=== PATIENT | female | born 1955 | race Caucasian/White ===

== ENCOUNTER 2016-03-12 11:52 | Observation (INO) | payer MEDICARE ==
--- NOTE | 2016-03-12 13:05 | ERNOTE ---
Trauma/Assault HPI - Narrative Date of Service: 03/12/16 - General Stated Complaint: KNEE PAIN Time Seen by Provider: 03/12/16 12:48 Source: patient Exam Limitations: no limitations - Immun/Allergies/Home Medications Immunizations: IMMUNIZATION HX Immunizations Up to Date No: unsure History of Influenza Vaccine No Hx Pneumococcal Vaccination No Allergies/Adverse Reactions: Allergies metoclopramide HCl [From Reglan] Adverse Reaction (Intermediate, Verified 14:12) Dyskinesia Home Medications: HOME MEDICATIONS Acetaminophen [Tylenol] 650 mg PO QID PRN #0 tablet 03/13/16 [Last Taken Unknown ] Clopidogrel Bisulfate [Plavix] 75 mg PO DAILY #30 tablet 03/13/16 [Last Taken Unknown] Enalapril Maleate [Vasotec] 20 mg PO BID #60 tablet 03/13/16 [Last Taken Unknown ] LORazepam [Ativan] 0.5 tab PO TID #45 tablet 03/13/16 [Last Taken Unknown] Levothyroxine Sodium [Synthroid] 150 mcg PO DAILY #30 tablet 03/13/16 [Last Taken Unknown] Ranitidine HCl [Zantac] 300 mg PO HS #30 tab 03/13/16 [Last Taken Unknown] Simvastatin [Zocor] 40 mg PO HS #60 tablet 03/13/16 [Last Taken Unknown] glipiZIDE [Glucotrol] 5 mg PO BIDAC #60 tablet 03/13/16 [Last Taken Unknown] metFORMIN HCL [Glucophage] 500 mg PO BIDWM #60 tablet 03/13/16 [Last Taken Unknown] - History of Present Illness Date (Duration): 03/12/16 Narrative: Pt. comes in with c/o falling twice in just as many weeks and stating that she has hit different parts of her body and had abrasions as well as hit her head three weeks ago in a fall. Pt. denies any dizziness but states that she has had an odd feeling recently and has pain and weakness and fatigue more recently. Review of Systems - Review of Systems Constitutional: Present: weakness, fatigue, malaise. Absent: recent illness, fever, chills EYE: Present: no symptoms reported ENT: Present: no symptoms reported Respiratory: Present: no symptoms reported Cardiology: Present: no symptoms reported Gastrointestinal/Abdominal: Present: no symptoms reported Genitourinary: Present: other - occasional incontinence Musculoskeletal: Present: back pain, joint pain - R knee Skin: Present: no symptoms reported Neurological: Present: weakness, pre-existing deficit All Other Systems: All systems neg except as marked - Patient's Past Medical History Patient History - Medical: Arthritis, Cataracts, Diabetes Type 2, Depression, GERD, Hypothyroidism, Migraines, Seizures, UTI'S, Other Patient History - Cardiac/Respiratory: CHF, CVA/Stroke, Hypertension, Hyperlipidemia, Other Patient History - Cancer: Colon Patient History - Surgical Procedures: Cataracts, Hysterectomy, Total Knee Replacement, Other - Family History Father Family History - Medical: Family History - Cardiac/Respiratory: Myocardial Infarction Mother Family History - Medical: , Alzheimer's Disease - Social History Living Situations: spouse Smoking Status: Never smoker Alcohol Use: occasionally Drug Use: none Physical Exam - Physical Exam General Appearance: Present: wd/wn, no apparent distress, lethargic Eye Exam: Normal inspection: bilateral, PERRL: bilateral, EOMI: bilateral Ears, Nose, Throat: Present: normal ENT inspection, hearing grossly normal Neck: Present: normal inspection, nontender. 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 Absent: normal mood/affect, no motor/sensory deficits Skin Exam: Present: normal color, warm/dry ED Progress - Date and Time Seen: Date and Time: Am concerned that pt's medication and multiple medical problems may be causing pt. to fall more frequently. 03/12/16 16:[address] Carine Guerrero and as pt. has a great deal of non specific problems and is hyperglycemic with multiple falls he recommends having pt. admitted for AMS and weakness. 03/12/16 17:00 03/13/16 13:55 - Vital Signs Patient's Vital Signs:: I have reviewed the patient's vital signs. Vital Signs: Vital Signs 03/12/16 12:23 Temperature 36.3 C L Pulse Rate 74 Respiratory 18 Rate Blood Pressure 180/99 O2 Sat by Pulse 95 Oximetry - Progress/Reassessment Chief Complaint: Fall Progress:: Unchanged Departure Clinical Impression: History of CVA (cerebrovascular accident) Altered mental status Qualifiers: Altered mental status type: unspecified Qualified Code(s): R41.82 - Altered mental status, unspecified - Departure Disposition: [facility] Condition: Fair
[2016-03-12 13:19] LABS: Hematocrit 42.3 % (37.0-47.0); Hemoglobin 14.5 gm/dL (12.5-16.0); Mean Cell Volume 89.6 fl (78-100); Mean Corpuscular Hemoglobin 30.7 pg (27-31); Mean Corpuscular Hgb Conc 34.3 g/dl (32-36); Neutrophil # 9.1 K/mm3 (1.3-6.0); Neutrophil % 71.2 % (42-75.0); Platelet Count 272 K/mm3 (150-450); Red Blood Count 4.72 M/mm3 (4.2-5.4); Red Cell Distribution Width 13.5 % (11.5-14.0); White Blood Count 12.9 K/mm3 (4.0-10.5)
[2016-03-12 13:50] LABS: Albumin * 2.9 gm/dl (3.4-5.0); Anion Gap 10.7 mmol/L (6.8-13.8); BUN/Creatinine Ratio 14.9 (9.0-21.6); Bilirubin, Total 0.8 mg/dL (0.0-1.1); Ca. Corrected For Albumin 9.9 mg/dL (8.4-10.2); Calcium * 9.3 mg/dL (7.9-10.9); Carbon Dioxide 29.7 mmol/L (24-32.6); Potassium 3.4 mmol/L (3.4-4.6); Total Protein 7.1 gm/dL (6.2-8.2)
[2016-03-12 15:19] LABS: Urine Bilirubin 1 mg/dl (NEGATIVE); Urine Blood 50 /ul (NEGATIVE); Urine Ketone 5 mg/dL (NEGATIVE); Urine Nitrite Negative (NEGATIVE); Urine Protein >=300 mg/dL (NEGATIVE); Urine Specific Gravity >=1.030 SP.GR. (1.005-1.010); Urine Urobilinogen Normal (NORMAL)
[2016-03-12 15:41] LABS: Urine Appearance Slightly Cloudy; Urine Bacteria TRACE; Urine Color Yellow; Urine WBC 0-5 /hpf (0-5)
[2016-03-12 17:39] LABS: Cocaine Ur Negative (NEGATIVE); Urine Barbiturate Negative (NEGATIVE); Urine Benzodiazepines Negative (NEGATIVE); Urine Opiates Negative (NEGATIVE); Urine PCP Negative (NEGATIVE); Urine THC Negative (NEGATIVE)
[2016-03-12] MEDS ORDERED: NAPROXEN 500 MG TABLET PO PRN (18:43)
[2016-03-12] MEDS ORDERED: ACETAMINOPHEN 325 MG TABLET PO PRN (18:48)
--- NOTE | 2016-03-12 18:58 | HP ---
Chief Complaint - Chief Complaint Date of Service: 03/12/16 Time of Service: 06:00 Chief Complaint: Falls History of Present Illness: For 6 weeks, falling more. No actual injury from the falls. Today, is also confused and bewildered. She has had similar episodes in the past. Hasn't been seen in our office for over a year. Also, has diabetes and presented to the [facility] ER today with nonketotic hyperglycemia. Cause for falls is not clear at present. - Patient's Past Medical History Patient History - Medical: Arthritis, Cataracts, Diabetes Type 2, Depression, GERD, Hypothyroidism, Migraines, Seizures, UTI'S Patient History - Cardiac/Respiratory: CHF, CVA/Stroke, Hypertension, Hyperlipidemia, Other Patient History - Cancer: Colon Patient History - Surgical Procedures: Cataracts, Hysterectomy, Total Knee Replacement, Other - Family History Father Family History - Medical: Family History - Cardiac/Respiratory: Myocardial Infarction Mother Family History - Medical: , Alzheimer's Disease - Social History Living Situations: spouse Smoking Status: Never smoker Alcohol Use: occasionally Drug Use: none Review Of Systems (GEN) - Review of Systems Generalized/Overall Review: Present: Weakness, Malaise EENTM: Present: No Symptoms Reported Respiratory: Present: No Symptoms Reported Cardiac: Present: No Symptoms Reported Abdominal: Present: No Symptoms Reported Genitourinary: Present: No Symptoms Reported Musculoskeletal: Present: No Symptoms Reported Neurological: Present: Other - HPI Skin: Present: No Symptoms Reported Endocrine: Present: No Symptoms Reported Misc: All systems neg except as marked Allergies/Adverse Reactions: Allergies Allergy/AdvReac Type Severity Reaction Status Date / Time metoclopramide HCl AdvReac Intermediate Dyskinesia Verified 02/13/16 14:12 [From Reglan] Home Medications: HOME MEDICATIONS Clopidogrel Bisulfate [Plavix] 75 mg PO DAILY 02/13/16 [Last Taken Unknown] Enalapril Maleate [Vasotec] 20 mg PO BID 02/13/16 [Last Taken Unknown] Gabapentin 300 mg PO TID 02/13/16 [Last Taken Unknown] LORazepam [Ativan] 0.5 mg PO TID 02/13/16 [Last Taken Unknown] Naproxen [Naprosyn] 500 mg PO BID PRN #60 tab 02/13/16 [Last Taken Unknown] Omeprazole 20 mg PO BID 02/13/16 [Last Taken Unknown] Simvastatin [Zocor] 40 mg PO HS 02/13/16 [Last Taken Unknown] Venlafaxine HCl [Effexor Xr] 150 mg PO DAILY 02/13/16 [Last Taken Unknown] Exam - Exam Vital Signs: Vital Signs - Last Taken Selected Entries 03/12/16 12:23 Temperature 36.3 C L Temperature Tympanic Source Pulse Rate 74 Pulse Rhythm Regular Respiratory 18 Rate Respiratory Normal Depth Respiratory Normal Effort Respiratory Normal Pattern Blood Pressure 180/99 Blood Pressure Sitting Position O2 Sat by Pulse 95 Oximetry Constitutional: Present: Cooperative, Well developed, No distress, Obese, Looks Older than stated age ENT Exam: Present: normal ENT inspection, pharynx normal, hard of hearing Eye Exam: bilateral eye: normal inspection, PERRL, EOMI Neck: Present: normal inspection Back Exam: Present: normal inspection, no CVA tenderness, no vertebral tenderness Respiratory: Present: normal breath sounds, no respiratory distress Cardiovascular/Chest: Present: regular rate, rhythm, no murmur Abdomen: Present: Normal bowel sounds, soft, nontender, nondistended, no rebound tenderness, no hepatospenomegaly, no masses, obese Extremity: Present: pedal edema Skin Exam: Present: normal color, warm/dry, no cyanosis Neurologic: Present: other - bewildered Appearance: Present: appropriate appearance, neat Eye contact: Present: cooperative Diagnostic Studies: Laboratory Results WBC 12.9 K/mm3 (4.0-10.5) H 03/12/16 13:15 RBC 4.72 M/mm3 (4.2-5.4) 03/12/16 13:15 Hgb 14.5 gm/dL (12.5-16.0) 03/12/16 13:15 Hct 42.3 % (37.0-47.0) 03/12/16 13:15 MCV 89.6 fl (78-100) 03/12/16 13:15 MCH 30.7 pg (27-31) 03/12/16 13:15 MCHC 34.3 g/dl (32-36) 03/12/16 13:15 RDW 13.5 % (11.5-14.0) 03/12/16 13:15 Plt Count 272 K/mm3 (150-450) 03/12/16 13:15 MPV 9.0 fl (6.0-9.5) 03/12/16 13:15 Immature Gran % (Auto) 0.60 % (0.001-0.429) H 03/12/16 13:15 Immature Gran # (Auto) 0.08 K/mm3 (0.000-0.0310) H 03/12/16 13:15 Neutrophils % 71.2 % (42-75.0) 03/12/16 13:15 Lymphocytes % 19.5 % (20-51) L 03/12/16 13:15 Monocytes % 4.1 % (0.0-9) 03/12/16 13:15 Eosinophils % 4.1 % (0.0-3.0) H 03/12/16 13:15 Basophils % 0.5 % (0.0-1.0) 03/12/16 13:15 Nucleated RBC % 0.0 k/mm3 (0-1) 03/12/16 13:15 Neutrophils # 9.1 K/mm3 (1.3-6.0) H 03/12/16 13:15 Lymphocytes # 2.5 k/mm3 (1.5-3.5) 03/12/16 13:15 Monocytes # 0.5 k/mm3 (0.0-1.0) 03/12/16 13:15 Eosinophils # 0.5 k/mm3 (0.0-0.7) 03/12/16 13:15 Absolute Basophils 0.1 k/mm3 (0.0-0.1) 03/12/16 13:15 Sodium 135 mmol/L (132-142) 03/12/16 13:15 Plasma Sodium 139 mmol/L (130-142) 03/12/16 13:15 Potassium 3.4 mmol/L (3.4-4.6) 03/12/16 13:15 Chloride 98 mmol/L (97-106) 03/12/16 13:15 Carbon Dioxide 29.7 mmol/L (24-32.6) 03/12/16 13:15 Anion Gap 10.7 mmol/L (6.8-13.8) 03/12/16 13:15 BUN 14 mg/dL (3-23) 03/12/16 13:15 Creatinine 0.94 mg/dL (0.4-1.4) 03/12/16 13:15 Est GFR (Non-Af Amer) 64 mL/min (60-130) 03/12/16 13:15 BUN/Creatinine Ratio 14.9 (9.0-21.6) 03/12/16 13:15 Random Glucose 326 mg/dL (70-110) H 03/12/16 13:15 Calcium 9.3 mg/dL (7.9-10.9) 03/12/16 13:15 Calcium Adj for Albumin 9.9 mg/dL (8.4-10.2) 03/12/16 13:15 Total Bilirubin 0.8 mg/dL (0.0-1.1) 03/12/16 13:15 AST 17 U/L (0-48) 03/12/16 13:15 ALT 27 U/L (19-67) 03/12/16 13:15 Alkaline Phosphatase 115 U/L (50-170) 03/12/16 13:15 Total Protein 7.1 gm/dL (6.2-8.2) 03/12/16 13:15 Albumin 2.9 gm/dl (3.4-5.0) L 03/12/16 13:15 Urine Color Yellow 03/12/16 15:09 Urine Appearance Slightly cloudy 03/12/16 15:09 Urine pH 6.0 pH (5.0-7.0) 03/12/16 15:09 Ur Specific [place] >=1.030 SP.GR. (1.005-1.010) 03/12/16 15:09 Urine Protein >=300 mg/dL (NEGATIVE) H 03/12/16 15:09 Urine Glucose (UA) >=1000 mg/dL (NEGATIVE) H 03/12/16 15:09 Urine Clinitest 3+ (200mg/dl) mg/dL (NEGATIVE) H 03/12/16 15:09 Urine Ketones 5 mg/dL (NEGATIVE) 03/12/16 15:09 Urine Blood 50 /ul (NEGATIVE) H 03/12/16 15:09 Urine Nitrate Negative (NEGATIVE) 03/12/16 15:09 Urine Bilirubin 1 mg/dl (NEGATIVE) H 03/12/16 15:09 Urine Ictotest Negative (NEGATIVE) 03/12/16 15:09 Prot Sulfosalicylic Acd 4+ mg/dL (0) H 03/12/16 15:09 Urine Urobilinogen Normal EU/dl (NORMAL) 03/12/16 15:09 Ur Leukocyte Esterase Negative /ul (NEGATIVE) 03/12/16 15:09 Urine RBC 5-10 /hpf (0-5) H 03/12/16 15:09 Urine WBC 0-5 /hpf (0-5) 03/12/16 15:09 Ur Epithelial Cells 0-5 /hpf (0-5) 03/12/16 15:09 Urine Bacteria Trace (NONE) 03/12/16 15:09 Urine Culture Comments No culture indicated 03/12/16 15:09 Urine Opiates Screen Negative (NEGATIVE) 03/12/16 15:07 Barbiturate Screen Negative (NEGATIVE) 03/12/16 15:07 Ur Phencyclidine Scrn Negative (NEGATIVE) 03/12/16 15:07 Urine Amphetamine Negative (NEGATIVE) 03/12/16 15:07 U Benzodiazepines Scrn Negative (NEGATIVE) 03/12/16 15:07 Urine Cocaine Screen Negative (NEGATIVE) 03/12/16 15:07 Urine Marijuana (THC) Negative (NEGATIVE) 03/12/16 15:07 Serum Ketones Negative (NEGATIVE) 03/12/16 13:15 Assessment/Plan - Narrative Narrative: Less IMMIGRATION PARALEGAL active meds. Follow labs. Observe overnight. Control sugars. Estimate stay, one midnight. - Assessment/Plan (1) Altered mental status Problem: Acute Qualifiers: Altered mental status type: unspecified Qualified Code(s): R41.82 - Altered mental status, unspecified (2) History of CVA (cerebrovascular accident) Problem: Chronic (3) Diabetes mellitus out of control Problem: Chronic Qualifiers: Diabetes mellitus type: type 2 Diabetes mellitus complication status: with unspecified complications Diabetes mellitus long term acute care registered nurse insulin use: without mcc use Qualified Code(s): E11.8 - Type 2 diabetes mellitus with unspecified complications; E11.65 - Type 2 diabetes mellitus with hyperglycemia (4) Anxiety Problem: Chronic (5) Diastolic dysfunction Problem: Chronic (6) History of migraine Problem: Chronic (7) Hypertension Problem: Chronic (8) Hypothyroidism Problem: Chronic (9) Obesity (BMI 30-39.9) Problem: Chronic (10) Seizures Problem: Chronic Qualifiers: Convulsion type: unspecified Qualified Code(s): R56.9 - Unspecified convulsions (11) Falls frequently Problem: Acute
[2016-03-12] MEDS ORDERED: GABAPENTIN 100 MG CAPSULE PO SCH (19:00)
[2016-03-12] MEDS ORDERED: ENOXAPARIN SODIUM 40 MG/0.4 ML SYRG SC SCH (19:00)
[2016-03-12] MEDS: ENALAPRIL MALEATE 20 MG TABLET PO SCH (20:55)
[2016-03-12] MEDS ORDERED: SIMVASTATIN 40 MG TABLET PO SCH (21:00)
[2016-03-13] MEDS ORDERED: INSULIN LISPRO 100 UNITS/ML VIAL ONE (00:39)
[2016-03-13] MEDS: INSULIN LISPRO 100 UNITS/ML VIAL SC SCH ×4 (00:43→16:15)
[2016-03-13 05:34] LABS: Hematocrit 38.1 % (37.0-47.0); Mean Cell Volume 90.3 fl (78-100); Mean Corpuscular Hemoglobin 30.8 pg (27-31); Mean Corpuscular Hgb Conc 34.1 g/dl (32-36); Mean Platelet Volume 9.5 fl (6.0-9.5); Neutrophil # 6.9 K/mm3 (1.3-6.0); Neutrophil % 63.6 % (42-75.0); Platelet Count 246 K/mm3 (150-450); Red Blood Count 4.22 M/mm3 (4.2-5.4); Red Cell Distribution Width 13.4 % (11.5-14.0); White Blood Count 10.8 K/mm3 (4.0-10.5)
[2016-03-13 05:56] LABS: Anion Gap 10.6 mmol/L (6.8-13.8); BUN/Creatinine Ratio 16.8 (9.0-21.6); Calcium * 9.3 mg/dL (7.9-10.9); Carbon Dioxide 28.9 mmol/L (24-32.6); Estimated Creat Clear 49.2; Potassium 3.5 mmol/L (3.4-4.6); T4 Free * 0.33 ng/dL (0.76-1.46); TSH * 51.204 uIU/mL (0.358-3.74)
[2016-03-13] MEDS: PANTOPRAZOLE SODIUM 20 MG TABLET.DR PO SCH ×2 (06:45→16:20)
[2016-03-13] MEDS ORDERED: DIPHTH,PERTUSS(ACELL),TET VAC 0.5 ML VIAL IM ONE (07:37)
[2016-03-13] MEDS ORDERED: CLOPIDOGREL BISULFATE 75 MG TABLET PO SCH (09:00)
[2016-03-13] MEDS ORDERED: LEVOTHYROXINE SODIUM 150 MCG TABLET PO SCH (09:00)
[2016-03-13] MEDS ORDERED: sitaGLIPtin PHOSPHATE 50 MG TABLET PO SCH (09:00)
[2016-03-13] MEDS ORDERED: VENLAFAXINE HCL 150 MG CAP.SR.24H PO SCH (09:00)
--- NOTE | 2016-03-13 09:14 | PN ---
Subjective - Date and Time Seen Date: 03/13/16 Time: 07:35 Subjective Narrative: Awake, alert, a little befuddled. TSH high, I suspect she hasn't been taking her thyroid medicine. Toes with NO monofilament sensation, so she has severe periperal neuropathy, leading to falls. She has arthitis and arthralgia in her lower extremities leading to falls. She is off balance on exam, leading to falls. Objective - Review of Systems Generalized/Overall Review: Reports: Weakness, Malaise EENTM: Reports: No Symptoms Reported Respiratory: Reports: No Symptoms Reported Cardiac: Reports: No Symptoms Reported Abdominal: Reports: No Symptoms Reported Genitourinary Symptoms: Reports: No Symptoms Reported Musculoskeletal Complaints: Reports: Joint Pain Neurological: Reports: Pre-existing Deficit Skin: Reports: Other - abrasions on toes from falls Endocrine: Reports: No Symptoms Reported Misc: All systems neg except as marked - Vitals Vitals: Last Vital Signs Selected Entries 03/13/16 07:11 Temperature 36.6 C Temperature Oral Source Pulse Rate 78 Respiratory 18 Rate Blood Pressure 155/81 Blood Pressure Supine Position O2 Sat by Pulse 98 Oximetry Oxygen Delivery Room Air Method - Abnormal Lab Findings Abnormal Lab Findings: Abnormal Lab Results 03/12/16 03/13/16 03/13/16 Range/Units 19:32 05:10 05:10 WBC 10.8 H (4.0-10.5) K/mm3 Immature Gran % (Auto) 0.50 H (0.001-0.429) % Immature Gran # (Auto) 0.05 H (0.000-0.0310) K/mm3 Eosinophils % 5.4 H (0.0-3.0) % Neutrophils # 6.9 H (1.3-6.0) K/mm3 pO2 70.1 L (83.0-108.0) mmHg Total CO2 25.4 H (19.0-24.0) mmol/L ABG O2 Sat (Measured) 93.4 L (94.0-98.0) % Random Glucose 259 H (70-110) mg/dL TSH 51.204 H (0.358-3.74) uIU/mL Free T4 0.33 L (0.76-1.46) ng/dL - Exam Constitutional: Present: Alert, Cooperative, Well developed, No distress, Obese , Looks Older than stated age - oriented X2 ENT Exam: Present: normal ENT inspection Neck: Present: normal inspection Respiratory: Present: lungs clear, no respiratory distress Cardiovascular/Chest: Present: regular rate, rhythm, no murmur Abdomen: Present: Normal bowel sounds, soft, nontender, nondistended, no rebound tenderness, no hepatospenomegaly, no masses, obese Extremity: Present: pedal edema, slow capillary refill, other - tender ankle and knee joints, non infected abrasions, bilateral toes Neurologic: Present: alert, other - off balance, absent monofilament toe sensation Eye contact: Present: cooperative, good eye contact Assessment/Plan Plan Narrative: PT OT eval. Resume meds for thyroid and diabetes. Up and around. Follow labs. Assessment as to ability to return home. - Problems/Diagnosis (1) Altered mental status Problem: Acute Qualifiers: Altered mental status type: unspecified Qualified Code(s): R41.82 - Altered mental status, unspecified (2) History of CVA (cerebrovascular accident) Problem: Chronic (3) Diabetes mellitus out of control Problem: Chronic Qualifiers: Diabetes mellitus type: type 2 Diabetes mellitus complication status: with unspecified complications Diabetes mellitus residential insulin use: without residential use Qualified Code(s): E11.8 - Type 2 diabetes mellitus with unspecified complications; E11.65 - Type 2 diabetes mellitus with hyperglycemia (4) Anxiety Problem: Chronic (5) Diastolic dysfunction Problem: Chronic (6) History of migraine Problem: Chronic (7) Hypertension Problem: Chronic (8) Hypothyroidism Problem: Chronic (9) Obesity (BMI 30-39.9) Problem: Chronic (10) Seizures Problem: Chronic Qualifiers: Convulsion type: unspecified Qualified Code(s): R56.9 - Unspecified convulsions (11) Falls frequently Problem: Acute (12) Abrasions of multiple sites Problem: Acute (13) Peripheral neuropathy Problem: Chronic Qualifiers: Peripheral neuropathy type: polyneuropathy associated with underlying disease Qualified Code(s): G63 - Polyneuropathy in diseases classified elsewhere (14) Balance disorder Problem: Chronic
[2016-03-13] MEDS: metFORMIN HCL 500 MG TABLET PO SCH ×2 (09:17→16:18)
[2016-03-13] MEDS: glipiZIDE 5 MG TABLET PO SCH ×2 (09:18→16:18)
[2016-03-13] MEDS: ENALAPRIL MALEATE 20 MG TABLET PO SCH (09:19)
[2016-03-13] MEDS ORDERED: MUPIROCIN 22 APPL TUBE TP SCH (09:30)
[2016-03-13] MEDS: LORazepam 0.5 MG TABLET PO SCH ×3 (09:34→16:14)
--- NOTE | 2016-03-13 12:14 | DS ---
(1) Altered mental status Problem: Acute Qualifiers: Altered mental status type: unspecified Qualified Code(s): R41.82 - Altered mental status, unspecified (2) History of CVA (cerebrovascular accident) Problem: Chronic (3) Diabetes mellitus out of control Problem: Chronic Qualifiers: Diabetes mellitus type: type 2 Diabetes mellitus complication status: with unspecified complications Diabetes mellitus buttermaker continuous churn insulin use: without buttermaker continuous churn use Qualified Code(s): E11.8 - Type 2 diabetes mellitus with unspecified complications; E11.65 - Type 2 diabetes mellitus with hyperglycemia (4) Anxiety Problem: Chronic (5) Diastolic dysfunction Problem: Chronic (6) History of migraine Problem: Chronic (7) Hypertension Problem: Chronic (8) Hypothyroidism Problem: Chronic Qualifiers: Hypothyroidism type: acquired Qualified Code(s): E03.9 - Hypothyroidism, unspecified (9) Obesity (BMI 30-39.9) Problem: Chronic Qualifiers: Obesity type: due to excess calories Obesity severity: non-morbid Qualified Code(s): E66.09 - Other obesity due to excess calories (10) Seizures Problem: Chronic Qualifiers: Convulsion type: unspecified Qualified Code(s): R56.9 - Unspecified convulsions (11) Falls frequently Problem: Acute (12) Abrasions of multiple sites Problem: Acute (13) Peripheral neuropathy Problem: Chronic Qualifiers: Peripheral neuropathy type: polyneuropathy associated with underlying disease Qualified Code(s): G63 - Polyneuropathy in diseases classified elsewhere (14) Balance disorder Problem: Chronic Description of Stay: Patient improved with medication adjustment. Numb feet, painful joints, and balance problems. Diabetes and hypothyroidism not well controlled. Poor medication compliance, perhaps due to inability to afford. Procedures Performed: none Discharge Disposition: Home self care Disposition: Home self-care Condition: Fair Discharge Activity: Activity as tolerated Discharge Diet: Consistent carbs, Low salt Referrals: Lico Medina MD [Primary Care Provider] - Problem Oriented Discharge Instructions to Patient/Family: Fall Prevention in the Home, [id number] Additional Patient Instructions (free text): Use your walker at all times for ambulation. Take your medication exactly as prescribed. See Dr. Gupta in 1 week. Prescriptions (Any new or edited meds): Clopidogrel Bisulfate [Plavix] 75 mg PO DAILY #30 tablet Enalapril Maleate [Vasotec] 20 mg PO BID #60 tablet LORazepam [Ativan] 0.5 tab PO TID #45 tablet Levothyroxine Sodium [Synthroid] 150 mcg PO DAILY #30 tablet Ranitidine HCl [Zantac] 300 mg PO HS #30 tab Simvastatin [Zocor] 40 mg PO HS #60 tablet glipiZIDE [Glucotrol] 5 mg PO BIDAC #60 tablet metFORMIN HCL [Glucophage] 500 mg PO BIDWM #60 tablet Complete Home Medications List: Complete Home Medication List: Acetaminophen [Tylenol] 650 mg PO QID PRN #0 tablet 03/13/16 Clopidogrel Bisulfate [Plavix] 75 mg PO DAILY #30 tablet 03/13/16 Enalapril Maleate [Vasotec] 20 mg PO BID #60 tablet 03/13/16 LORazepam [Ativan] 0.5 tab PO TID #45 tablet 03/13/16 Levothyroxine Sodium [Synthroid] 150 mcg PO DAILY #30 tablet 03/13/16 Ranitidine HCl [Zantac] 300 mg PO HS #30 tab 03/13/16 Simvastatin [Zocor] 40 mg PO HS #60 tablet 03/13/16 glipiZIDE [Glucotrol] 5 mg PO BIDAC #60 tablet 03/13/16 metFORMIN HCL [Glucophage] 500 mg PO BIDWM #60 tablet 03/13/16
[2016-03-13 16:13] VITALS: BP 133/71
[2016-03-14] MEDS ORDERED: LEVOTHYROXINE SODIUM 100 MCG TABLET PO SCH (07:00)
== END 2016-03-13 17:30 | disposition home or self-care (01) ==
LOC: ER 11:52 → MS 16:52
PROVIDERS: ADMIT Allergy & Immunology; ATTEND Allergy & Immunology
DX: R41.82 Altered mental status, unspecified (principal); R29.6 Repeated falls; Z91.81 History of falling; T14.8 Other injury of unspecified body region; G63 Polyneuropathy in diseases classified elsewhere; R26.89 Other abnormalities of gait and mobility; R56.9 Unspecified convulsions; E66.09 Other obesity due to excess calories; I10 Essential (primary) hypertension; I50.32 Chronic diastolic (congestive) heart failure; F41.9 Anxiety disorder, unspecified; E11.8 Type 2 diabetes mellitus with unspecified complications; E11.65 Type 2 diabetes mellitus with hyperglycemia; Z86.73 Personal history of transient ischemic attack (TIA), and cerebral infarction without residual deficits; Z23 Encounter for immunization; Z79.01 Long term (current) use of anticoagulants; Z79.899 Other long term (current) drug therapy; Z82.49 Family history of ischemic heart disease and other diseases of the circulatory system; Z90.710 Acquired absence of both cervix and uterus; Z96.659 Presence of unspecified artificial knee joint; Z85.038 Personal history of other malignant neoplasm of large intestine; Z87.440 Personal history of urinary (tract) infections
CPT/HCPCS: 36415; 36600; 72110; 73562; 80048; 80053; 81001; 82009; 82803; 84439; 84443; 85025; 87081; 90471; 90715; 96372; 97161; 97165; 99283; G0378; G0479; G8978; G8979; G8980; G8987; G8988; G8989

== ENCOUNTER 2017-01-12 20:50 | Emergency (ER) | payer MEDICARE, MEDICAID ==
[2017-01-12 22:02] LABS: Hematocrit 35.5 % (37.0-47.0); Hemoglobin 11.5 gm/dL (12.5-16.0); Mean Cell Volume 89.6 fl (78-100); Mean Corpuscular Hgb Conc 32.4 g/dl (32-36); Mean Platelet Volume 9.5 fl (6.0-9.5); Neutrophil # 7.8 K/mm3 (1.3-6.0); Neutrophil % 69.7 % (42-75.0); Platelet Count 225 K/mm3 (150-450); Red Blood Count 3.96 M/mm3 (4.2-5.4); Red Cell Distribution Width 12.9 % (11.5-14.0); White Blood Count 11.2 K/mm3 (4.0-10.5)
[2017-01-12 22:21] LABS: Albumin * 2.9 gm/dl (3.4-5.0); Anion Gap 12.1 mmol/L (6.8-13.8); BUN/Creatinine Ratio 25.5 (9.0-21.6); Bilirubin, Total 0.4 mg/dL (0.0-1.1); Ca. Corrected For Albumin 10.1 mg/dL (8.4-10.2); Calcium * 9.5 mg/dL (7.9-10.9); Carbon Dioxide 26.7 mmol/L (24-32.6); Potassium 3.8 mmol/L (3.4-4.6); Total Protein 6.9 gm/dL (6.2-8.2)
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
[2017-01-12 23:54] VITALS: BP 119/44
== END 2017-01-13 00:50 | disposition home or self-care (01) ==
LOC: ER 20:50
DX: Z03.89 Encounter for observation for other suspected diseases and conditions ruled out (principal); Z90.49 Acquired absence of other specified parts of digestive tract